=== PATIENT | female | born 1990 | race African-American/Black ===

== ENCOUNTER 2019-04-27 12:50 | Inpatient (IN) | payer MEDICAID ==
--- NOTE | 2019-04-27 13:37 | ER Document Report ---
ED Medical Screen (RME) - General Chief Complaint: High Blood Pressure Stated Complaint: HEADACHE Time Seen by Provider: 04/27/19 13:26 Notes: Patient is a 28-year-old female presents emergency department with a chief complaint of headache. Patient states that on April 18 she had a scheduled at 37 weeks where she did deliver twins. Patient reports that the C- section was uneventful. Patient reports she is not currently breast-feeding. Patient reports during regnancy she did not have a history of hypertension or take medications for high blood pressure. Patient reports swelling to her feet, legs, hands and eyes. Patient reports the swelling started yesterday. Patient states she woke up around 6 AM this morning with a generalized headache. Patient denies visual changes. Patient reports nausea without vomiting. Yury garza denies fever. Patient reports she does not have any past medical history does not take any daily medications. Patient reports she did deliver at [place]. - Related Data Allergies/Adverse Reactions: No Known Allergies Allergy (Verified 04/27/19 12:54) Physical Exam - Vital signs Vitals: Temp Pulse Resp BP Pulse Ox 98.8 F 56 L 18 203/103 H 97 04/27/19 12:59 04/27/19 12:59 04/27/19 12:59 04/27/19 12:59 04/27/19 12:59 - HEENT Head: Normocephalic Eyes: Other - Edema noted to eyes, no ecchymosis, no erythema. - Respiratory Respiratory status: No respiratory distress Chest status: Nontender Breath sounds: Normal Chest palpation: Normal - Abdominal Inspection: Obese Distension: No distension Bowel sounds: Normal Tenderness: Tender - TENDERNESS TO LOWER ABDOMEN AROUND SURGICAL SITE. Course - Re-evaluation Re-evalutation: 04/27/19 13:37 I have greeted and performed a rapid initial assessment of this patient. A comprehensive ED assessment and evaluation of the patient, analysis of test results and completion of the medical decision making process will be conducted by additional ED providers. - Vital Signs Vital signs: Temp Pulse Resp BP Pulse Ox 98.8 F 56 L 18 181/87 H 97 04/27/19 12:59 04/27/19 12:59 04/27/19 12:59 04/27/19 13:02 04/27/19 12:59
[2019-04-27 13:49] LABS: ABSOLUTE EOSINOPHILS # (AUTO) 0.1 10^3/uL (0.0-0.6); ABSOLUTE LYMPHOCYTES (AUTO) 1.3 10^3/uL (0.5-4.7); ABSOLUTE MONOCYTES (AUTO) 0.3 10^3/uL (0.1-1.4); ABSOLUTE NEUT (AUTO) 4.3 10^3/uL (1.7-8.2); BASOPHILS % (AUTO) 0.4 % (0-2); EOSINOPHILS % (AUTO) 1.1 % (0-6); HEMATOCRIT 34.6 % (36.0-47.0); HEMOGLOBIN 12.1 g/dL (12.0-15.5); LYMPHOCYTES % (AUTO) 21.2 % (13-45); MEAN CORPUSCULAR HEMOGLOBIN 31.1 pg (27.0-33.4); MEAN CORPUSCULAR HGB CONC 34.9 g/dL (32.0-36.0); MEAN CORPUSCULAR VOLUME 89 fl (80-97); MONOCYTES % (AUTO) 5.3 % (3-13); PLATELET COUNT 278 10^3/uL (150-450); RED BLOOD COUNT 3.88 10^6/uL (3.72-5.28); RED CELL DISTRIBUTION WIDTH 13.3 % (11.5-14.0); TOTAL CELLS COUNTED % (AUTO) 100 %
[2019-04-27] MEDS ORDERED: HYDRALAZINE HCL INJ/PF 20 MG/1 ML SDV IV ONE ×2 (13:50→16:45)
--- NOTE | 2019-04-27 13:54 | ER Document Report ---
ED Blood Pressure Problem - General Chief Complaint: High Blood Pressure Stated Complaint: HEADACHE Time Seen by Provider: 04/27/19 13:26 Information source: Patient Notes: HPI: Patient is a -0-0-3 with a twin delivery on April 18 who presents today the onset around 2 days ago of some swelling to bilateral hands and feet. She states this morning she woke up with a global headache. No fevers or vomiting. No weakness or numbness. She also states bilateral periorbital regions have started to swell. She denies any history of diagnosed high blood pressure or blood pressure elevation during . She is not on any blood pressure medications. She denies excessive bleeding from the vaginal region or abdominal pain or swelling. ROS: See HPI All other review of systems reviewed and otherwise negative Reviewed vital signs and nursing note as charted by RN. PHYSICAL EXAM: CONSTITUTIONAL: Alert and oriented and responds appropriately to questions. Well-appearing; well-nourished HEAD: Normocephalic; atraumatic EYES: PERRL; bilateral nonerythematous periorbital edema ENT: Normal nose; no rhinorrhea; moist mucous membranes; pharynx without lesions noted NECK: Supple without meningismus; non-tender; no cervical lymphadenopathy, no masses CARD: Regular rate and rhythm; no murmurs; symmetric distal pulses RESP: Normal chest excursion without splinting or tachypnea; breath sounds clear and equal bilaterally ABD/GI: Normal bowel sounds; non-distended; soft, very mildly tender the suprapubic region with wounds that are clean dry and intact; no palpable organomegaly or masses BACK: The back appears normal and is non-tender to palpation EXT: Normal ROM in all joints; non-tender to palpation; some minimal edema to bilateral hands. Patient is only able to make a partial fist. 1+ edema to bilateral shins. Neurovascularly intact to all 4 extremities SKIN: No acute lesions noted NEURO: CN 2-12 intact; 5/5 bilateral upper and lower extremity strength with sensation intact to light touch PSYCH: The patient's mood and manner are appropriate. Grooming and personal hygiene are appropriate. - Related Data Allergies/Adverse Reactions: No Known Allergies Allergy (Verified 04/27/19 12:54) Past Medical History - Social History Smoking Status: Unknown if Ever Smoked Family History: Reviewed & Not Pertinent Physical Exam - Vital signs Vitals: Temp Pulse Resp BP Pulse Ox 98.8 F 56 L 18 203/103 H 97 04/27/19 12:59 04/27/19 12:59 04/27/19 12:59 04/27/19 12:59 04/27/19 12:59 Course - Re-evaluation Re-evalutation: Given the history and physical examination, status post delivery, with the edema as described, I am concerned about preeclampsia progressing to eclampsia. No history of blood pressure problems previously. Blood pressure 200/100 at this time. I have called and spoken directly to the CARPENTER ASSISTANT after I have ordered 10 mg of IV hydralazine. Patient is on the monitor. I have ordered although appropriate laboratory values including a complete metabolic profile and fibrinogen level. She would like me to hold on the magnesium at th is time. She does in agreement with hydralazine. I do believe subarachnoid hemorrhage and acute bacterial meningitis to be extremely unlikely. We will treat the patient's pain and blood pressure. 04/27/19 14:38 Pain is slightly improved. Repeat blood pressure as recorded. Labs showing a slightly upper limit elevation of fibrinogen. Urine analysis is pending. 04/27/19 15:04 Urine analysis as recorded. Blood pressure has improved. No change around the eyes or extremities. Patient's pain is slightly improved. CARPENTER ASSISTANT has accepted the patient. - Vital Signs Vital signs: Temp Pulse Resp BP Pulse Ox 98.8 F 56 L 27 H 181/121 H 100 04/27/19 12:59 04/27/19 12:59 04/27/19 15:02 04/27/19 15:02 04/27/19 15:02 - Laboratory Result Diagrams: 04/27/19 13:17 04/27/19 13:17 Laboratory results interpreted by me: 04/27/19 04/27/19 04/27/19 13:17 13:17 13:17 Hct 34.6 L Chloride 109 H Urine Blood SMALL H Critical Care Note - Critical Care Note Total time excluding time spent on procedures (mins): 35 Discharge - Discharge Clinical Impression: pre-eclampsia with posterior reversible encephalopathy syndrome Condition: Fair Disposition: ADMITTED INPATIENT Admitting Provider: [facility] Unit Admitted: Medical Floor
[2019-04-27 14:05] LABS: ALBUMIN 3.5 g/dL (3.5-5.0); ALKALINE PHOSPHATASE 106 U/L (38-126); ANION GAP 8 (5-19); ASPARTATE AMINO TRANSFERASE 20 U/L (14-36); BILIRUBIN,DIRECT 0.1 mg/dL (0.0-0.4); BILIRUBIN,TOTAL 0.3 mg/dL (0.2-1.3); BLOOD UREA NITROGEN 7 mg/dL (7-20); CALCIUM 9.3 mg/dL (8.4-10.2); CARBON DIOXIDE 25 mmol/L (22-30); CHLORIDE 109 mmol/L (98-107); GLUCOSE 82 mg/dL (75-110); POTASSIUM 4.2 mmol/L (3.6-5.0); TOTAL PROTEIN 6.6 g/dL (6.3-8.2)
[2019-04-27 14:36] LABS: APPEARANCE,URINE CLEAR; BILIRUBIN,URINE NEGATIVE (NEGATIVE); COLOR,URINE STRAW; GLUCOSE, URINE NEGATIVE (NEGATIVE); KETONES,URINE NEGATIVE (NEGATIVE); LEUKOCYTE ESTERASE,URINE NEGATIVE (NEGATIVE); NITRITE,URINE NEGATIVE (NEGATIVE); PROTEIN,URINE NEGATIVE (NEGATIVE); URINE SPECIFIC GRAVITY 1.004; UROBILINOGEN,URINE NEGATIVE mg/dL (<2.0)
[2019-04-27] MEDS ORDERED: MORPHINE SULFATE 10 MG/ML INJ IV ONE (14:39)
--- NOTE | 2019-04-27 14:41 | RADIOLOGY REPORT (SQ) ---
EXAM DESCRIPTION: CT HEAD WITHOUT COMPLETED DATE/TIME: 04/27/2019 2:23 pm REASON FOR STUDY: headache COMPARISON: None. TECHNIQUE: Axial images acquired through the brain without intravenous contrast. Images reviewed wit h bone, brain and subdural windows. Images stored on PACS. All CT scanners at this facility use dose modulation, iterative reconstruction, and/or weight based d osing when appropriate to reduce radiation dose to as low as reasonably achievable (ALARA). [facility]: Dose Right [facility]: CareDose [facility]: Dose Right [facility]: Teradose 4D [facility]: Smart [place] [employer] RADIATION DOSE: CT Rad equipment meets quality standard of care and radiation dose reduction techniq ues were employed. CTDIvol: 53.2 mGy. DLP: 937 mGy-cm.. LIMITATIONS: None. FINDINGS: VENTRICLES: Normal size and contour. CEREBRUM: No masses. No hemorrhage. No midline shift. Age appropriate white matter. No evidence for a cute infarction. CEREBELLUM: No masses. No hemorrhage. No alteration of density. No evidence for acute infarction. EXTRA-AXIAL SPACES: No fluid collections. ORBITS AND GLOBE: No intra- or extraconal masses. Normal contour of globe without masses. CALVARIUM: No fracture. PARANASAL SINUSES: No fluid or mucosal thickening. SOFT TISSUES: No mass or hematoma. OTHER: No other significant finding. IMPRESSION: NO ACUTE INTRACRANIAL FINDINGS. EVIDENCE OF ACUTE STROKE: NO. TECHNICAL DOCUMENTATION: JOB ID: [id number] Quality ID # [id number]: Final reports with documentation of one or more dose reduction techniques (e.g., Au tomated exposure control, adjustment of the mA and/or kV according to patient size, use of iterative reconstruction technique) 2010 [employer]- All Rights Reserved Reading location - IP/workstation name: [email or web address]
--- NOTE | 2019-04-27 15:57 | Admission Physical ---
Datetime Report Generated by CPN: 04/27/2019 15:56 CURRENT ADMISSION Chief Complaint: Other Chief Complaint Other: Comes to ER c/o STREET and swelling. Pt is s/p RCS of twins on 04/18/10 at [facility]. Awakened this AM with severe STREET and periorbital edema. No issues prior to this. No BP issues before or dring . BP severely elevated to 180s-200s/90s-100s in ER. Admit Impression- Other: Postartum preeclampsia Admit Plan: Admit to Unit ALLERGIES Medication Allergies: No Known Allergies (04/27/2019) PHYSICAL EXAM General: Normal HEENT: Abnormal Neurologic: Normal Heart: Normal Lungs: Normal Abdomen: Normal Physical Exam Comments: Bilateral periorbital edema SCDs on LEs CS incision with iodoform/gauze dressing rolled up under pannus Vital Signs: Reviewed Details Vital Signs: BP 170s-200s/90s-110s FETUS A Admit Comment: Magnesium sulfate for seizure prophylaxis. IV Antihypertensives prn. Treat STREET with Fioricet prn. Dressing removed from incision. Incision c/d/i. INFORMED CONSENT Signature: with User ID: [email or web address]
[2019-04-27] MEDS ORDERED: LABETALOL HCL INJ 20 MG/4 ML DISP.SYRIN IV ONE ×6 (16:41→21:27)
[2019-04-27] MEDS ORDERED: MAGNESIUM SULFATE 4 GM/100 ML RTUPB IV ONE ×2 (16:43→16:53)
[2019-04-27] MEDS ORDERED: RINGERS SOLUTION,LACTATED 1,000 ML IV PRN (16:54)
[2019-04-27] MEDS ORDERED: NIFEDIPINE 30 MG TAB.ER.24 PO ONE ×2 (18:48→20:00)
[2019-04-27 19:41] LABS: UR PRO/CREAT RATIO RESULT 1.4 mg/mg (0.0-0.2); URINE CREATININE 14.9 mg/dL (16-327); URINE PROTEIN 21.4 mg/dL (<12)
--- NOTE | 2019-04-27 19:41 | EKG REPORT ---
SEVERITY:- NORMAL ECG - SINUS RHYTHM : Confirmed by: Felecia Moran MD 27-Apr-2019 19:40:49
[2019-04-27] MEDS ORDERED: ACETAMINOPHEN 325 MG TABLET PO ONE ×2 (21:45→21:50)
[2019-04-27] MEDS ORDERED: ACETAMINOPHEN 325 MG TABLET ONE (21:49)
[2019-04-28] MEDS ORDERED: MAGNESIUM SULFATE 20 GM/500 ML RTUINJ IV ONE ×2 (02:03→12:48)
[2019-04-28] MEDS: MAGNESIUM SULFATE 20 GM/500 ML RTUINJ IV PRN ×2 (02:11→12:52)
[2019-04-28] MEDS ORDERED: ACETAMINOPHEN 325 MG TABLET PO ONE (05:24)
[2019-04-28] MEDS ORDERED: ACETAMINOPHEN 325 MG TABLET ONE (05:41)
[2019-04-28] MEDS ORDERED: BUTALB/ACETAMINOPHEN/CAFFEINE 1 TAB EACH ONE (09:03)
[2019-04-28] MEDS ORDERED: BUTALB/ACETAMINOPHEN/CAFFEINE 1 TAB EACH PO ONE (10:00)
[2019-04-28] MEDS ORDERED: NIFEDIPINE 30 MG TAB.ER.24 PO ONE (11:53)
[2019-04-28] MEDS: NIFEDIPINE 30 MG TAB.ER.24 PO SCH (11:56)
[2019-04-28] MEDS ORDERED: ZOLPIDEM TARTRATE 5 MG TABLET PO PRN (20:20)
[2019-04-28] MEDS: IBUPROFEN 800 MG TABLET PO SCH (22:26)
[2019-04-29] MEDS: IBUPROFEN 800 MG TABLET PO SCH ×3 (05:44→21:27)
[2019-04-29] MEDS: FERROUS SULFATE 325 MG TABLET PO SCH ×2 (09:10→17:07)
[2019-04-29] MEDS: NIFEDIPINE 30 MG TAB.ER.24 PO SCH (09:10)
[2019-04-29] MEDS: PRENATAL VITAMIN W DHA CAPSULE PO SCH (09:10)
[2019-04-29] MEDS: DOCUSATE SODIUM 100 MG CAPSULE PO SCH ×2 (09:10→17:07)
[2019-04-29] MEDS: SENNOSIDES/DOCUSATE 8.6-50 MG 1 EACH TABLET PO SCH (09:10)
[2019-04-30] MEDS: IBUPROFEN 800 MG TABLET PO SCH (06:18)
[2019-04-30] MEDS: DOCUSATE SODIUM 100 MG CAPSULE PO SCH (09:54)
[2019-04-30] MEDS: SENNOSIDES/DOCUSATE 8.6-50 MG 1 EACH TABLET PO SCH (09:54)
[2019-04-30] MEDS: PRENATAL VITAMIN W DHA CAPSULE PO SCH (09:54)
[2019-04-30] MEDS: FERROUS SULFATE 325 MG TABLET PO SCH (09:54)
[2019-04-30] MEDS: NIFEDIPINE 30 MG TAB.ER.24 PO SCH (09:55)
--- NOTE | 2019-04-30 12:33 | PDOC PROGRESS REPORT ---
Subjective-OB Progress Note for:: 04/30/19 - Pt readmitted for PP Pre-eclampsia and given Magnessium Sulfate. S/p Section of twins. Pt denies headache, blurred vision or epigastric pain today. States she feels like her edema is decreasing. Physical Exam (OB) Vital Signs: Temp Pulse Resp BP Pulse Ox 97.8 F 56 L 14 141/64 H 100 04/30/19 07:26 04/30/19 07:26 04/30/19 07:26 04/30/19 07:26 04/30/19 07:26 Intake & Output 04/29/19 04/30/19 05/01/19 06:59 06:59 06:59 Intake Total 740 Output Total 150 Balance 740 -150 - General General Appearance: Appears well, Alert In distress: None - PIH/Pre-Eclampsia DTR's: 2 + Clonus: Negative Headache: Absent Epigastric Pain: No Visual Changes: No - Dressing Removed: - delivered 04/18/19 Incision: Well Approximated - Lochia Lochia Amount: Scant < 10 ml Lochia Color: Rubra/Red - Abdomen Description: Soft, Round Hernia Present: No - HEENT Eyes: Periorbital edema - Respiratory Respiratory Status: No respiratory distress Breath sounds: Clear - Cardiovascular Rhythm: Regular Heart Sounds: Normal auscultation - Abdominal Inspection: Normal Distension: No distension Tenderness: Nontender Abdominal Notes: +bowel sounds noted - Genitourinary Genitourinary Note: voiding - Extremities Upper extremity: Edema Lower extremities: Edema - 1+ - Neurological Cognition: Normal Orientation: AAOx4 Speech: Normal - Psychological Associated symptoms: Normal affect, Normal mood - Skin Skin Temperature: Warm Skin Moisture: Dry Objective-Diagnostic Laboratory: 04/27/19 13:17 04/27/19 13:17 Assessment and Plan(PN) - Assessment and Plan (1) pre-eclampsia with posterior reversible encephalopathy syndrome Is this a current diagnosis for this admission?: Yes - Time Spent with Patient Time with patient: Less than 15 minutes Smoking Education Provided: Over 3 minutes Medications reviewed and adjusted accordingly: Yes - Disposition Anticipated Discharge: Home Within: within 24 hours - Rechecking labwork today, will plan to d/c home if Pre-eclampsia labs are normal
[2019-04-30 12:37] LABS: ABSOLUTE EOSINOPHILS # (AUTO) 0.1 10^3/uL (0.0-0.6); ABSOLUTE LYMPHOCYTES (AUTO) 1.4 10^3/uL (0.5-4.7); ABSOLUTE MONOCYTES (AUTO) 0.4 10^3/uL (0.1-1.4); ABSOLUTE NEUT (AUTO) 2.6 10^3/uL (1.7-8.2); BASOPHILS % (AUTO) 0.7 % (0-2); EOSINOPHILS % (AUTO) 2.5 % (0-6); HEMATOCRIT 39.6 % (36.0-47.0); HEMOGLOBIN 13.6 g/dL (12.0-15.5); MEAN CORPUSCULAR HEMOGLOBIN 30.9 pg (27.0-33.4); MEAN CORPUSCULAR HGB CONC 34.5 g/dL (32.0-36.0); MEAN CORPUSCULAR VOLUME 90 fl (80-97); MONOCYTES % (AUTO) 8.2 % (3-13); PLATELET COUNT 293 10^3/uL (150-450); RED BLOOD COUNT 4.42 10^6/uL (3.72-5.28); RED CELL DISTRIBUTION WIDTH 13.5 % (11.5-14.0); SEGMENTED NEUTROPHILS % (AUTO) 57.6 % (42-78); TOTAL CELLS COUNTED % (AUTO) 100 %; WHITE BLOOD COUNT 4.6 10^3/uL (4.0-10.5)
[2019-04-30 12:58] LABS: ALBUMIN 3.3 g/dL (3.5-5.0); ALKALINE PHOSPHATASE 88 U/L (38-126); ANION GAP 10 (5-19); ASPARTATE AMINO TRANSFERASE 14 U/L (14-36); BILIRUBIN,DIRECT 0.1 mg/dL (0.0-0.4); BILIRUBIN,TOTAL 0.4 mg/dL (0.2-1.3); BLOOD UREA NITROGEN 9 mg/dL (7-20); CARBON DIOXIDE 24 mmol/L (22-30); CHLORIDE 105 mmol/L (98-107); GLUCOSE 81 mg/dL (75-110); POTASSIUM 4.1 mmol/L (3.6-5.0); TOTAL PROTEIN 6.3 g/dL (6.3-8.2); URIC ACID 5.6 mg/dL (2.5-6.2)
--- NOTE | 2019-04-30 13:16 | PDOC DISCHARGE SUMMARY ---
Final Diagnosis Discharge Date: 04/30/19 - 12 days PP, admitted for PP Pre-eclampsia and had been on Magnessium Sulfate this admission. S/p Section for Twins. Doing well today, denies h/a, blurred vision, epigastric pain - Final Diagnosis (1) pre-eclampsia with posterior reversible encephalopathy syndrome Is this a current diagnosis for this admission?: Yes Discharge Data - Discharge Medication Prescriptions: Nifedipine [Procardia XL 30 mg Tablet] 30 mg PO DAILY #30 tab.er.24 Home Medications: Nifedipine [Procardia XL 30 mg Tablet] 30 mg PO DAILY #30 tab.er.24 04/30/19 Vit/Dha [ Multi + Dha Capsule] 1 cap PO DAILY capsule 04/30/19 Reason(s) for Admission: Other - Pre-eclampsia Procedures: Ultrasound - Diagnosis Test Laboratory: Temp Pulse Resp BP Pulse Ox 98.5 F 62 14 145/82 H 100 04/30/19 11:29 04/30/19 11:29 04/30/19 11:29 04/30/19 11:29 04/30/19 11:29 04/27/19 04/30/19 13:17 12:00 RBC 3.88 4.42 Hgb 12.1 13.6 Hct 34.6 L 39.6 - Discharge information/Instructions Discharge Activity: Activity As Tolerated, No Lifting Over 10 Pounds, Pelvic Rest Discharge Diet: As Tolerated, Regular Disposition: HOME, SELF-CARE Follow up with: [facility] in: 1, Weeks - Pt to f/u with her Ob provider in one week for BP check and evaluation
[2019-04-30 13:39] VITALS: BP 126/73
== END 2019-04-30 14:20 | disposition home or self-care (01) | DRG 776 ==
LOC: ER 12:50 → LR 15:32 → 2S 04-28 21:11
PROVIDERS: ADMIT Obstetrics & Gynecology; ATTEND Obstetrics & Gynecology
DX: O14.95 Unspecified pre-eclampsia, complicating the puerperium (principal); I67.83 Posterior reversible encephalopathy syndrome
CPT/HCPCS: 36415; 70450; 80053; 81001; 82570; 83615; 83690; 84156; 84550; 85025; 85384; 93005; 93010; 96374; 96375; 99291; J0360; J2270; J3475; J3490